=== PATIENT | male | born 1950 | race Caucasian/White ===

== ENCOUNTER 2019-08-01 09:06 | Day surgery (SDC) | payer OTHER, BC ==
[2019-08-01 09:16] LABS: Absolute Lymphocytes (CBC) 2.1 K/uL (0.7-4.9); Basophils % 0.6 % (0-1.3); Lymphocytes % 38.3 % (15.3-44.8); MPV 8.2 fL (7.6-11.3); RBC Red Blood Cell Count 5.56 M/uL (4.33-5.43)
[2019-08-01] MEDS ORDERED: FENTANYL CITR 100 MCG/2 ML ONE (09:22)
[2019-08-01] MEDS ORDERED: MIDAZOLAM HCL 2 MG/2 ML INJ ONE (09:22)
[2019-08-01] MEDS ORDERED: dexAMETHasone 10 MG/ML VIAL ONE (09:22)
[2019-08-01] MEDS ORDERED: LIDOCAINE 2% MPF 5 ML VIAL ONE (09:22)
[2019-08-01] MEDS ORDERED: propofoL 200 MG/20 ML VIAL IV ONE (09:22)
[2019-08-01] MEDS ORDERED: CEFAZOLIN/SWI 1gm 1 GM/10 ML SYR ONE (09:23)
[2019-08-01] MEDS ORDERED: Ringers Lactate 1,000 ML IV ONE (09:23)
[2019-08-01 09:25] LABS: Potassium 4.5 mmol/L (3.5-5.1)
--- NOTE | 2019-08-01 09:50 | RAD REPORT ---
EXAM DESCRIPTION: Fabricio Moya (2 Views)08/01/2019 9:29 am CLINICAL HISTORY: Preop for removal of a back mass COMPARISON: None FINDINGS: The lungs appear clear of acute infiltrate. The heart is normal size IMPRESSION: No acute abnormalities displayed
--- NOTE | 2019-08-01 09:54 | EKG ---
Test Date: 2019-08-01 Test Time: 07:38:56 [employer]: AMA MEASUREMENT RESULTS: Intervals: Rate: 48 NV: 200 QRSD: 132 QT: 420 QTc: 375 [place]: P: 55 NV: 200 QRS: -36 T: -44 INTERPRETIVE STATEMENTS: Marked sinus bradycardia Left axis deviation Left bundle branch block Abnormal ECG No previous ECG available for comparison Electronically Signed On 08-01-19 09:53:40 CDT by Damon Parks
[2019-08-01] MEDS ORDERED: GLYCOPYRROLATE 0.2 MG/ML SYR ONE (10:19)
[2019-08-01] MEDS ORDERED: KETOROLAC 30 MG/ML INJ ONE (11:02)
[2019-08-01] MEDS ORDERED: HYDROCODONE/APAP 7.5/325 MG TAB ONE (12:29)
[2019-08-01 13:33] VITALS: BP 129/78; TEMP 96.3; O2SAT 94
--- NOTE | 2019-08-01 22:14 | OP ---
Date of Procedure: 08/01/2019 Surgeon: Edward Presley MD Preoperative Diagnoses: Inflamed sebaceous cyst, left arm and sebaceous cyst, left back. Postoperative Diagnoses: Inflamed sebaceous cyst, left arm and sebaceous cyst, left back. Procedure Performed: Wide excision of left arm mass a 10 x 6 cm with layered closure and length of c losure 10 cm, and wide excision of left back mass 10 x 6 cm with layered closure and length of closur e 10 cm. Estimated Blood Loss: Minimal. Specimens: C and S from the inflamed sebaceous cyst; and that 2 sebaceous cysts, 1 in the left arm a nd 1 in the left back. Findings: As above. Anesthesia: General. Complications: None. Disposition: Patient tolerated the procedure, in stable condition, taken to Recovery in good general condition. Description Of Procedure: The patient was brought to the OR and placed in supine position. General anesthesia was begun. Patient was prepped and draped in usual sterile fashion. Marcaine 0.5% was in filtrated locally. Then on the left back, 10 x 6 cm incision was made to excise this large sebaceous cyst down through the deep subcutaneous tissue all the way to the muscle layer, excised and sent to Pathology as specimen. Wound was irrigated. Bleeding was controlled with cautery. Flaps were creat ed and then 2-0 chromic used to approximate subcutaneous tissue and german used to close the skin. Sterile dressing applied. Then, the left arm 10 x 6 cm made. This was inflamed sebaceous cyst. It was red. Subcutaneous tissue divided. The entire cyst all the way down to the deltoid muscle was ex cised and sent to Pathology. Cultures were done from the cyst itself, as there was some infection pr esent. Wound was thoroughly irrigated. Flaps were created and then a [place] quarter-inch drain was placed and secured with 3-0 nylon and 2-0 chromic used to approximate the subcutaneous tissue and st aples used to loosely close skin. Sterile dressing applied. Patient was awakened and taken to [facility] in good general condition. Discharge Note: Patient will go to Day Surgery and home when stable. Disposition: Home. Condition: Stable. Discharge Instructions: Resume home medications and diet. Activity as tolerated. No heavy lifting. Remove outer dressing in 2 days. Shower. Keep wound clean and dry. Follow up in my office in 1 w [place]. Call for appointment. Víctorenol No.3 one tablet p.o. q.4 p.r.n. pain, Cipro 500 mg p.o. q.12. /BABS Voice ID: [id number] Report ID: [id number]
== END 2019-08-01 13:00 | disposition home health service (06) ==
LOC: OR 09:06
PROVIDERS: ATTEND Surgery
PROC: 0JB70ZZ Excision of Back Subcutaneous Tissue and Fascia, Open Approach (ICD-10-PCS; 2019-08-01)
PROC: 0JBF0ZZ Excision of Left Upper Arm Subcutaneous Tissue and Fascia, Open Approach (ICD-10-PCS; principal; 2019-08-01 10:15)
DX: L72.0 Epidermal cyst (principal); L03.114 Cellulitis of left upper limb; R00.1 Bradycardia, unspecified; I44.7 Left bundle-branch block, unspecified; R94.31 Abnormal electrocardiogram [ECG] [EKG]; Z95.5 Presence of coronary angioplasty implant and graft; Z79.82 Long term (current) use of aspirin; Z79.899 Other long term (current) drug therapy
CPT/HCPCS: 93005; 87070; 85025; 80048; 36415; 87205; 88304; 87075; 71046; 11406 ×2; 12035; J2704; J2250; J3010; J1100; J0690; J7120; 88305